=== PATIENT | female | born 1965 | race African-American/Black ===

== ENCOUNTER → 2017-04-26 | Outpatient (REF) ==
[~2017-04-26] MED LIST: ALOE VERA CONCE1 CAP PO; CALCIUM 600 PLU1 TAB PO; CALCIUM CITRAT200 MG PO; CENTRUM1 TAB PO; CITRUS CALCIUM200 MG PO; DIOVAN; EPA FISH OIL1000 MG PO; FE-TABS325 MG PO; FERROUS SU325 MG/TAB PO; FISH OIL 1000MG1 CAP PO; FISH OIL CONC1000 MG PO; FOLIC ACID; FOLIC ACID 40400 MCG PO; LIPITOR; LISINOPRIL5 MG PO; MOTRIN 800800 MG/TAB PO; MULTIPLE VITAMI1 TAB PO; NORCO 325 MG-7.1 TAB PO; ROXICODONE 55 MG/TAB PO; SIMVASTATIN20 MG PO; TUSS PO; ULTRAM 50MG TAB50 MG PO; VITAMIN B-1000 MCG/T PO; VITAMIN B-1100 MG PO; VITAMIN B12; VITAMIN B1250 MG PO; VITAMIN C500 MG PO; ZITHROMAX 250M250 MG PO
== END ==
LOC: WSOH 11:30
DX: Z02.89 Encounter for other administrative examinations (principal)

== ENCOUNTER → 2017-05-05 | Outpatient (CLI) | payer OTHER | LOC: MC.RAD 11:40 | DX: Z12.31 Encounter for screening mammogram for malignant neoplasm of breast (principal) ==

== ENCOUNTER → 2017-06-20 | Outpatient (REF) | LOC: WSOH 19:15 | DX: Z02.89 Encounter for other administrative examinations (principal) ==

== ENCOUNTER → 2021-07-20 | Outpatient (CLI) | payer BC | LOC: MC.RAD 15:39 | DX: Z12.31 Encounter for screening mammogram for malignant neoplasm of breast (principal) ==

== ENCOUNTER 2022-08-11 15:45 | Outpatient (RCR) | payer BC | END 2022-08-15 | disposition home or self-care (01) | LOC: WSPT | DX: M54.50 Low back pain, unspecified (principal); G89.29 Other chronic pain ==